=== PATIENT | female | born 1975 | race Caucasian/White ===

== ENCOUNTER 2019-06-19 19:11 | Emergency (ER) | payer OTHER ==
[~2019-06-19] VITALS: Ht 162.6 cm; Wt 93.2 kg
[2019-06-19] MEDS ORDERED: SYNTHROID0.125 MG PO (20:30)
[2019-06-19 22:00] VITALS: BP 107/81
== END 2019-06-19 22:00 | disposition home or self-care (01) ==
LOC: ED 19:11
DX: S93.401A Sprain of unspecified ligament of right ankle, initial encounter (principal); K21.9 Gastro-esophageal reflux disease without esophagitis; W10.9XXA Fall (on) (from) unspecified stairs and steps, initial encounter; X50.1XXA Overexertion from prolonged static or awkward postures, initial encounter; Y92.009 Unspecified place in unspecified non-institutional (private) residence as the place of occurrence of the external cause

== ENCOUNTER 2020-06-01 16:39 | Emergency (ER) | payer OTHER ==
[~2020-06-01 16:39] MED LIST: SYNTHROID0.125 MG PO
[2020-06-01] MEDS ORDERED: TOPIRAMATE25 MG PO (16:49)
[2020-06-01 17:04] LABS: EOS # 0.2 (0.04-0.40); EOS % 2.2 % (1.0-5.0); HEMATOCRIT 42.1 % (37.0-47.0); LYMPH# 2.4 (1.50-4.00); MEAN CELL VOLUME 90 fl (78-100); MEAN CORPUSCULAR HEMOGLOBIN 30 pg (27-31); MEAN CORPUSCULAR HGB CONC 33 g/dL (33-37); MEAN PLATELET VOLUME 10.1 fl (7.4-10.4); MONO # 0.7 (0.20-0.80); NEU # 3.9 (1.40-6.50); PLATELET COUNT 283 K/mm3 (130-400); RED BLOOD COUNT 4.68 M/mm3 (4.10-5.30); RED CELL DISTRIBUTION WIDTH 13.4 % (11.5-14.5); WHITE BLOOD COUNT 7.2 K/mm3 (4.8-10.8)
[2020-06-01 17:12] LABS: ALBUMIN 4.1 g/dL (3.5-5.0); POTASSIUM 3.7 mmol/L (3.5-5.1); SODIUM 140 mmol/L (136-145)
[2020-06-01 17:13] LABS: CALCIUM 8.9 mg/dL (8.3-10.5)
[2020-06-01 17:14] LABS: GLUCOSE 75 mg/dL (65-105)
[2020-06-01 17:15] LABS: TOTAL PROTEIN 7.3 g/dL (6.4-8.3)
[2020-06-01 17:16] LABS: CARBON DIOXIDE 28 mmol/L (22-29); TOTAL BILIRUBIN 0.2 mg/dL (0.2-1.2)
[2020-06-01 17:20] LABS: AST-SGOT 19 U/L (5-34)
[2020-06-01 17:21] LABS: ALT/SGPT 16 U/L (0-55)
[2020-06-01 17:27] LABS: TROPONIN-I < 0.03 ng/mL (<0.030)
[2020-06-01 17:33] LABS: D-DIMER 1.03 mg/L FEU (0.15-0.50)
[2020-06-01 17:56] LABS: ERYTHROCYTE SEDIMENTATION RATE 11 mm/hr (0-20)
[2020-06-01 20:33] VITALS: BP 111/75
== END 2020-06-01 20:36 | disposition home or self-care (01) ==
LOC: ED 16:39
PROVIDERS: Physician Assistant
DX: R07.9 Chest pain, unspecified (principal); E03.9 Hypothyroidism, unspecified; G43.909 Migraine, unspecified, not intractable, without status migrainosus; Z79.890 Hormone replacement therapy
CPT/HCPCS: Q9967

== ENCOUNTER → 2021-03-25 | Outpatient (CLI) | payer OTHER ==
[~2021-03-25] MED LIST changes: +TOPIRAMATE25 MG PO
== END ==
LOC: MAMMO 12:33 → RAD 12:33
DX: Z12.31 Encounter for screening mammogram for malignant neoplasm of breast (principal); M19.011 Primary osteoarthritis, right shoulder

== ENCOUNTER → 2021-06-29 | Outpatient (CLI) | payer OTHER ==
[2021-06-29 16:13] LABS: BASO # 0.05 K/mm3 (0.02-0.10); EOS # 0.28 K/mm3 (0.04-0.40); EOS % 3.1 % (1.0-5.0); HEMATOCRIT 39.9 % (37.0-47.0); HEMOGLOBIN 13.3 g/dL (12.5-16.0); LYMPH# 2.66 K/mm3 (1.50-4.00); MEAN CELL VOLUME 91 fl (78-100); MEAN CORPUSCULAR HEMOGLOBIN 30 pg (27-31); MEAN CORPUSCULAR HGB CONC 33 g/dL (33-37); MEAN PLATELET VOLUME 9.8 fl (7.4-10.4); PLATELET COUNT 315 K/mm3 (130-400); RED BLOOD COUNT 4.39 M/mm3 (4.10-5.30); RED CELL DISTRIBUTION WIDTH 12.2 % (11.5-14.5); WHITE BLOOD COUNT 9.1 K/mm3 (4.8-10.8)
[2021-06-29 16:22] LABS: POTASSIUM 3.8 mmol/L (3.5-5.1)
[2021-06-29 16:23] LABS: ALBUMIN 4.1 g/dL (3.5-5.0)
[2021-06-29 16:24] LABS: CALCIUM 9.4 mg/dL (8.3-10.5)
[2021-06-29 16:25] LABS: TOTAL PROTEIN 7.7 g/dL (6.4-8.3)
[2021-06-29 16:27] LABS: TOTAL BILIRUBIN 0.3 mg/dL (0.2-1.2)
== END ==
LOC: LAB 15:51
PROVIDERS: Family Medicine
DX: Z00.00 Encounter for general adult medical examination without abnormal findings (principal); E06.3 Autoimmune thyroiditis; E78.5 Hyperlipidemia, unspecified; M25.569 Pain in unspecified knee

== ENCOUNTER → 2021-07-16 | Outpatient (CLI) | payer OTHER | LOC: RAD 14:00 | DX: E04.1 Nontoxic single thyroid nodule (principal) ==

== ENCOUNTER → 2022-02-11 | Outpatient (CLI) | payer OTHER | LOC: RAD 18:38 | DX: S69.92XA Unspecified injury of left wrist, hand and finger(s), initial encounter (principal) ==

== ENCOUNTER → 2022-02-12 | Outpatient (CLI) | payer OTHER | LOC: RAD 15:45 | DX: S69.92XD Unspecified injury of left wrist, hand and finger(s), subsequent encounter (principal); X58.XXXD Exposure to other specified factors, subsequent encounter ==

== ENCOUNTER → 2022-03-30 | Outpatient (CLI) | payer OTHER | LOC: MAMMO 10:45 | DX: Z12.31 Encounter for screening mammogram for malignant neoplasm of breast (principal) ==

== ENCOUNTER 2022-04-11 10:00 | Outpatient (RCR) | payer OTHER | END 2022-05-04 | disposition home or self-care (01) | LOC: OT | DX: S63.615D Unspecified sprain of left ring finger, subsequent encounter (principal); X58.XXXD Exposure to other specified factors, subsequent encounter ==

== ENCOUNTER → 2022-08-04 | Outpatient (CLI) | payer OTHER | LOC: RAD 07-26 11:39 | DX: S63.615D Unspecified sprain of left ring finger, subsequent encounter (principal); X58.XXXD Exposure to other specified factors, subsequent encounter ==

== ENCOUNTER → 2023-02-10 | Outpatient (CLI) | payer OTHER | LOC: RAD 10:25 | DX: R10.2 Pelvic and perineal pain (principal) ==

== ENCOUNTER → 2023-02-17 | Outpatient (CLI) | payer OTHER | LOC: RAD 15:11 | DX: M46.1 Sacroiliitis, not elsewhere classified (principal) ==

== ENCOUNTER → 2023-05-04 | Outpatient (RCR) | payer OTHER | LOC: PT | DX: M25.552 Pain in left hip (principal) ==

== ENCOUNTER 2023-05-05 08:00 | Outpatient (RCR) | payer OTHER | END 2023-06-04 | disposition home or self-care (01) | LOC: PT | DX: M25.552 Pain in left hip (principal) ==

== ENCOUNTER 2023-06-06 08:00 | Outpatient (RCR) | payer OTHER | END 2023-07-05 | disposition home or self-care (01) | LOC: PT | DX: M25.552 Pain in left hip (principal) ==

== ENCOUNTER → 2023-06-09 | Outpatient (CLI) | payer OTHER | LOC: RAD 11:07 | DX: M51.35 Other intervertebral disc degeneration, thoracolumbar region (principal); M51.36 Other intervertebral disc degeneration, lumbar region; M46.1 Sacroiliitis, not elsewhere classified ==

== ENCOUNTER → 2024-01-25 | Outpatient (CLI) | payer OTHER | LOC: LAB 15:23 | DX: M79.661 Pain in right lower leg (principal); M54.2 Cervicalgia ==

== ENCOUNTER → 2024-03-20 | Outpatient (CLI) | payer OTHER ==
[2024-03-20 15:19] LABS: BASO # 0.02 K/mm3 (0.02-0.10); EOS # 0.13 K/mm3 (0.04-0.40); EOS % 1.5 % (1.0-5.0); HEMATOCRIT 40.8 % (37.0-47.0); HEMOGLOBIN 13.7 g/dL (12.5-16.0); LYMPH# 2.16 K/mm3 (1.50-4.00); MEAN CELL VOLUME 93 fl (78-100); MEAN CORPUSCULAR HEMOGLOBIN 31 pg (27-31); MEAN CORPUSCULAR HGB CONC 34 g/dL (33-37); MEAN PLATELET VOLUME 10.1 fl (7.4-10.4); MONO # 0.76 K/mm3 (0.20-0.80); NEU # 5.69 K/mm3 (1.40-6.50); PLATELET COUNT 279 K/mm3 (130-400); RED BLOOD COUNT 4.41 M/mm3 (4.10-5.30); RED CELL DISTRIBUTION WIDTH 12.2 % (11.5-14.5); WHITE BLOOD COUNT 8.8 K/mm3 (4.8-10.8)
[2024-03-20 15:24] LABS: ALBUMIN 4.3 g/dL (3.5-5.0)
[2024-03-20 15:25] LABS: CALCIUM 9.6 mg/dL (8.3-10.5)
[2024-03-20 15:27] LABS: TOTAL PROTEIN 7.4 g/dL (6.4-8.3)
[2024-03-20 15:28] LABS: TOTAL BILIRUBIN 0.4 mg/dL (0.2-1.2)
== END ==
LOC: LAB 15:06
PROVIDERS: Family Medicine
DX: Z00.00 Encounter for general adult medical examination without abnormal findings (principal); E78.5 Hyperlipidemia, unspecified; E06.3 Autoimmune thyroiditis; E55.9 Vitamin D deficiency, unspecified

== ENCOUNTER → 2024-04-03 | Outpatient (CLI) | payer OTHER | LOC: MAMMO 03-27 15:00 | DX: Z12.31 Encounter for screening mammogram for malignant neoplasm of breast (principal); M51.34 Other intervertebral disc degeneration, thoracic region ==

== ENCOUNTER → 2024-04-23 | Outpatient (CLI) | payer OTHER ==
[~2024-04-23] MED LIST changes: +Gadoterate 20 ML VIAL IV ONE
== END ==
LOC: RAD 13:52
DX: G95.9 Disease of spinal cord, unspecified (principal)
CPT/HCPCS: A9575

== ENCOUNTER 2024-08-26 21:50 | Emergency (ER) | payer OTHER ==
[~2024-08-26] VITALS: Ht 162.6 cm; Wt 93.2 kg
[~2024-08-26 21:50] MED LIST changes: -Gadoterate 20 ML VIAL IV ONE
[2024-08-26] MEDS ORDERED: WEGOVY2.4 MG/0.7 SQ (22:11)
[2024-08-26] MEDS ORDERED: PREDNISONE20 M1 PO (22:11)
[2024-08-26] MEDS ORDERED: CELECOXIB200 M1 PO (22:11)
[2024-08-26] MEDS ORDERED: Lidocaine 2% Viscous 15 ML UNIT DOSE CUP MM ONE (22:15)
[2024-08-26] MEDS ORDERED: Mag/Al Hydrox/Simeth Susp 30 ML CUP PO ONE (22:15)
[2024-08-26 22:16] LABS: BASO # 0.02 K/mm3 (0.02-0.10); EOS # 0.23 K/mm3 (0.04-0.40); EOS % 2.4 % (1.0-5.0); LYMPH# 2.04 K/mm3 (1.50-4.00); MEAN CELL VOLUME 91 fl (78-100); MEAN CORPUSCULAR HEMOGLOBIN 30 pg (27-31); MEAN CORPUSCULAR HGB CONC 33 g/dL (33-37); MEAN PLATELET VOLUME 9.7 fl (7.4-10.4); MONO # 0.89 K/mm3 (0.20-0.80); NEU # 6.43 K/mm3 (1.40-6.50); PLATELET COUNT 272 K/mm3 (130-400); RED BLOOD COUNT 4.61 M/mm3 (4.10-5.30); RED CELL DISTRIBUTION WIDTH 12.5 % (11.5-14.5); WHITE BLOOD COUNT 9.6 K/mm3 (4.8-10.8)
[2024-08-26] MEDS ORDERED: NS 100 ML IV SCH (22:19)
[2024-08-26] MEDS ORDERED: Iohexol 300 - 100 ML VIAL IV ONE (22:20)
[2024-08-26 22:23] LABS: ALBUMIN 4.1 g/dL (3.5-5.0)
[2024-08-26 22:24] LABS: SODIUM 139 mmol/L (136-145)
[2024-08-26 22:25] LABS: CALCIUM 9.1 mg/dL (8.3-10.5)
[2024-08-26 22:26] LABS: GLUCOSE 87 mg/dL (65-105); TOTAL PROTEIN 7.5 g/dL (6.4-8.3)
[2024-08-26 22:27] LABS: CARBON DIOXIDE 22 mmol/L (22-29)
[2024-08-26 22:28] LABS: TOTAL BILIRUBIN 0.4 mg/dL (0.2-1.2)
[2024-08-26 22:31] LABS: AST-SGOT 14 U/L (5-34)
[2024-08-26 22:32] LABS: ALT/SGPT 12 U/L (0-55)
[2024-08-26 22:33] LABS: LIPASE 24 U/L (8-78)
[2024-08-26 22:40] LABS: TROPONIN-I < 0.030 ng/mL (0.00-0.033)
[2024-08-26 23:03] VITALS: BP 108/73
== END 2024-08-26 23:05 | disposition home or self-care (01) ==
LOC: ED 21:50
PROVIDERS: Physician Assistant
DX: R10.816 Epigastric abdominal tenderness (principal); R10.811 Right upper quadrant abdominal tenderness; Z87.19 Personal history of other diseases of the digestive system
CPT/HCPCS: Q9967

== ENCOUNTER → 2024-09-11 | Outpatient (CLI) | payer OTHER ==
[~2024-09-11] MED LIST changes: +CELECOXIB200 M1 PO; +PREDNISONE20 M1 PO; +WEGOVY2.4 MG/0.7 SQ
== END ==
LOC: AMSURD 16:04
DX: R07.9 Chest pain, unspecified (principal)